=== PATIENT | female | born 1940 | race Two or more races ===

== ENCOUNTER 2022-11-16 12:47 | Emergency (ER) | payer OTHER ==
[~2022-11-16] VITALS: Ht 162.6 cm; Wt 59.9 kg
[2022-11-16] MEDS ORDERED: LEVOTHYROXINE88 MC1 (13:11)
[2022-11-16] MEDS ORDERED: NORVASC10 MG (13:11)
[2022-11-16] MEDS ORDERED: CARVEDILOL ER40 MG PO (13:11)
[2022-11-16] MEDS ORDERED: PROTONIX40 M1 (13:13)
[2022-11-16] MEDS ORDERED: DIOVAN320 MG PO (13:14)
[2022-11-16] MEDS ORDERED: XANAX1 MG (13:14)
[2022-11-16] MEDS ORDERED: MONTELUKAST SODI4 M1 PO (13:14)
[2022-11-16] MEDS ORDERED: NAMENDA10 MG (13:15)
[2022-11-16] MEDS ORDERED: ATORVASTATIN CA20 MG (13:15)
[2022-11-16] MEDS ORDERED: HORIZANT300 MG (13:15)
[2022-11-16] MEDS ORDERED: LYRICA100 MG (13:16)
== END 2022-11-16 21:59 | disposition home or self-care (01) ==
LOC: ER 12:47
DX: R53.81 Other malaise (principal); Z88.8 Allergy status to other drugs, medicaments and biological substances; F41.8 Other specified anxiety disorders; I10 Essential (primary) hypertension; E87.1 Hypo-osmolality and hyponatremia; E03.9 Hypothyroidism, unspecified; Z20.822 Contact with and (suspected) exposure to COVID-19